=== PATIENT | male | born 1995 | race Caucasian/White ===

== ENCOUNTER → 2017-04-12 | Outpatient (CLI) | payer BC, OTHER | END | disposition home or self-care (01) | LOC: C.RDSM 16:28 | PROVIDERS: ATTEND Family Medicine | DX: M25.561 Pain in right knee (principal) ==

== ENCOUNTER → 2017-05-09 | Outpatient (CLI) | payer BC, OTHER | END | disposition home or self-care (01) | LOC: C.RDSM 21:22 | PROVIDERS: ATTEND Family Medicine | DX: M79.671 Pain in right foot (principal) ==

== ENCOUNTER → 2017-06-08 | Outpatient (CLI) | payer BC, OTHER | END | disposition home or self-care (01) | LOC: C.RDSM 11:00 | PROVIDERS: ATTEND Orthopaedic Surgery | DX: M79.671 Pain in right foot (principal) ==

== ENCOUNTER → 2017-06-22 | Outpatient (CLI) | payer BC, OTHER | END | disposition home or self-care (01) | LOC: C.RDSM 17:12 | PROVIDERS: ATTEND Orthopaedic Surgery | DX: S92.901A Unspecified fracture of right foot, initial encounter for closed fracture (principal); X58.XXXA Exposure to other specified factors, initial encounter ==

== ENCOUNTER → 2017-10-23 | Outpatient (CLI) | payer BC, OTHER | END | disposition home or self-care (01) | LOC: C.RDSM 11:45 | PROVIDERS: ATTEND Family Medicine | DX: M79.671 Pain in right foot (principal) ==

== ENCOUNTER → 2017-11-02 | Outpatient (CLI) | payer BC, OTHER ==
--- NOTE | 2017-11-02 09:41 | DIAGNOSTIC IMAGING REPORT ---
R ANKLE MIN 3 VIEWS, R FOOT MIN 3 VIEWS HISTORY: 22 years-old Male RIGHT 5TH MT FX AND MASS OF RIGHT ANKLE acute right foot and ankle pain COMPARISON: Right foot radiographs 10/23/2017 TECHNIQUE: 3 views of the right foot and 3 views of the right ankle FINDINGS: ANKLE: Mild marginal spurring about the tibiotalar joint with multiple corticated bone fragments adjacent to the distal fibula suggesting remote avulsion fractures measuring up to 8 mm. Additionally, there is a 3 mm corticated bone fragment projecting over the lateral tibiotalar joint. Mild cortical regularity about the lateral talar dome. FOOT: Cannulated screw of the fifth metatarsal is intact fixating a subacute to chronic appearing transversely oriented fracture of the proximal metaphyseal fifth metatarsal. The degree of bony healing appear loose unchanged with mild incomplete healing about the lateral cortex. Mild persistent soft tissue swelling. No acute fracture or dislocation. Type I accessory navicular. IMPRESSION: 1. Intact cannulated screw of the fifth metatarsal fixating an acute to subacute appearing fracture of the proximal metaphyseal fifth metatarsal which again demonstrates incomplete bony healing about the lateral cortex. 2. Mild cortical regularity about the lateral talar dome may reflect an osteochondral defect. 3 mm corticated bone fragment projecting over the lateral tibiotalar joint suggests anterior tibial osteophyte or intra-articular body. These findings could be correlated with MRI of the ankle if clinically indicated. The above report was generated using voice recognition software. It may contain grammatical, syntax or spelling errors. Electronically signed by: Mauricio Ewing M.D. 11/02/2017 9:40 AM Dictated Date/Time: 11/02/2017 9:33 AM
== END | disposition home or self-care (01) ==
LOC: C.RDSM 09:52
PROVIDERS: ATTEND Orthopaedic Surgery
DX: R22.41 Localized swelling, mass and lump, right lower limb (principal); M84.374D Stress fracture, right foot, subsequent encounter for fracture with routine healing; X58.XXXD Exposure to other specified factors, subsequent encounter